=== PATIENT | male | born 1955 | race Caucasian/White ===

== ENCOUNTER 2018-11-26 08:42 | Day surgery (SDC) | payer OTHER ==
[~2018-11-26 08:42] MED LIST: CHONDR SU A NA/HYALUR INTRAOC KIT (SURGICARE) ONE; EPINEPHRINE INJ/PF 1 MG/1 ML AMPULE ONE; KETOROLAC TROMETHAMINE 0.45% 4 DROP/0.4 ML DROPERETTE OD PRN; LIDOCAINE 1%/PHENYLEPHRINE 1.5% 1 ML VIAL ONE
[2018-11-26] MEDS: CYCLOPENTOLATE 0.2%/PHENYLEPHRINE 1% OPH SOLN 2 ML OD PRN ×3 (09:35→09:55)
[2018-11-26] MEDS: BESIFLOXACIN HCL 0.6% OPH SUSP 5 ML BOTTLE OD PRN ×4 (09:35→10:26)
[2018-11-26] MEDS: TETRACAINE HCL 0.5% OPH SOLN 4 ML OD PRN ×3 (09:35→10:06)
[2018-11-26] MEDS: TROPICAMIDE 1% OPH SOLN 3 ML OD PRN ×3 (09:35→09:55)
[2018-11-26] MEDS ORDERED: MIDAZOLAM 2 MG/2 ML INJ ONE (09:49)
[2018-11-26] MEDS: DORZOLAMIDE HCL 2%/TIMOLOL MALEAT 0.5% OPH SOLN 10 ML OD PRN ×2 (10:26)
--- NOTE | 2018-11-26 13:03 | Operative Report ---
Operative Report-[facility] Operative Report: DATE OF SURGERY: 11/19/2018 PREOPERATIVE DIAGNOSIS: Cataract, right eye POSTOPERATIVE DIAGNOSIS: Cataract, right eye OPERATION: Cataract extraction with insertion of an IOL of the right eye. Intraocular Lens Model: [25.5 sn60wf] reason for surgery: imbalance between eyes with difficulty focusing SURGEON: Kimani Lovelace MD ANESTHESIA: Topical PROCEDURE: After obtaining appropriate consent, the patient's right eye was prepped and draped in a sterile fashion as well as the surgeon in the sterile manner and cataract surgery was started. First a paracentesis blade was used to make a side-port incision. Viscoelastic was used to inflate the anterior chamber. Next a 2.4 mm incision was made with a 2.4 mm blade, clear corneal temporarily. A continuous capsulorrhexis was made using a cystotome and Utrata forceps. Following this hydrodissection was carried out to make the cristina fully loose and mobile and it was rotated. Following this, a divide and conquer technique was used to phacoemulsify the cristina. The remaining cortex was removed with an irrigation/aspiration. Provisc was instilled into the capsular bag to inflate the bag. The intraocular lens was placed. The remaining viscoelastic material was removed with irrigation/aspiration. Following this, the incision was found to be watertight. Besivance and Cosopt was instilled into the eye and a protective shield was placed over the eye. The patient was reurned to the postoperative recovery in a stable condition.
--- NOTE | 2018-11-26 13:07 | Operative Report ---
Operative Report-[facility] Operative Report: Addendum to operative report on 11/26/2018 it was previously dictated as 11/19/2018 but cataract surgery was actually done on 11/26/2018
== END 2018-11-26 11:11 | disposition home or self-care (01) ==
LOC: SC 08:42
PROVIDERS: ATTEND Internal Medicine
DX: H25.811 Combined forms of age-related cataract, right eye (principal); Z96.1 Presence of intraocular lens; E11.9 Type 2 diabetes mellitus without complications; K21.9 Gastro-esophageal reflux disease without esophagitis; I10 Essential (primary) hypertension; G47.30 Sleep apnea, unspecified; Z79.899 Other long term (current) drug therapy
CPT/HCPCS: 66984; 82962; 00142; V2632; J2250; J3490 ×2; J0171; J2370; 142